=== PATIENT | male | born 2000 | race Caucasian/White ===

== ENCOUNTER 2023-09-30 05:39 | Emergency (ER) | payer SELFPAY ==
[~2023-09-30] VITALS: Ht 170.1 cm; Wt 76.7 kg
[2023-09-30] MEDS ORDERED: AVPAK AZITHROM250 M1 PO (07:40)
[2023-09-30] MEDS ORDERED: REGLAN10 M1 PO (07:40)
[2023-09-30] MEDS ORDERED: IBU800 M2 PO (07:40)
== END 2023-09-30 07:59 | disposition home or self-care (01) ==
LOC: ED 05:39
DX: G43.909 Migraine, unspecified, not intractable, without status migrainosus (principal); J32.9 Chronic sinusitis, unspecified; R11.10 Vomiting, unspecified; J45.909 Unspecified asthma, uncomplicated